=== PATIENT | male | born 1975 | race Caucasian/White ===

== ENCOUNTER 2017-11-30 11:33 | Emergency (ER) | payer MEDICAID, OTHER ==
[2017-11-30 12:01] LABS: ADD MAN DIFF? NO
[2017-11-30] MEDS: ONDANSETRON 4 MG INJ IV (12:01)
[2017-11-30] MEDS: KETOROLAC 30 MG INJ IV (12:01)
[2017-11-30] MEDS: SOD CHLORIDE 0.9% 1,000 ML IV (12:01)
[2017-11-30 12:11] LABS: BASOPHIL # 0.1 10^3/ul (0.0-0.1); BASOPHILS % 0.4 % (0.0-2.0); EOSINOPHILS # 0.2 10^3/ul (0.0-0.5); EOSINOPHILS % 1.6 % (0.0-7.0); HEMATOCRIT 44.2 % (42.0-52.0); HEMOGLOBIN 15.4 g/dl (14.0-18.0); LYMPHOCYTES % 35.2 % (15.0-51.0); MEAN CORPUSCULAR HEMOGLOBIN 29.6 pg (29.0-33.0); MEAN CORPUSCULAR HGB CONC 34.8 g/dl (32.0-37.0); MEAN PLATELET VOLUME 11.1 fl (7.4-10.4); MONOCYTE # 0.7 10^3/ul (0.3-0.9); NEUTROPHIL # 6.4 10^3/ul (1.6-7.5); NEUTROPHILS % 56.4 % (39.0-77.0); PLATELET COUNT 250 10^3/UL (140-415); RED CELL DISTRIBUTION WIDTH 12.9 % (11.5-14.5)
[2017-11-30 12:11] LABS: WHITE BLOOD COUNT 11.4 10^3/ul (4.8-10.8)
[2017-11-30 12:21] LABS: ANION GAP 13 (8-16); BLOOD UREA NITROGEN 7 mg/dl (7-20); CALCIUM 6.2 mg/dl (8.4-10.2); CARBON DIOXIDE 20 mmol/L (21-31); CHLORIDE 116 mmol/L (97-110); GLUCOSE 106 mg/dl (70-220); SODIUM 147 mmol/L (135-144)
[2017-11-30 12:35] LABS: POTASSIUM 2.4 mmol/L (3.5-5.1); TROPONIN-I < 0.012 ng/ml (0.000-0.120)
[2017-11-30] MEDS: POTASSIUM CHLORIDE (SR) 20 MEQ TAB PO (12:46)
[2017-11-30] MEDS: POTASSIUM CHLORIDE 100 ML IVPB (13:46)
== END 2017-11-30 16:50 | disposition home or self-care (01) ==
LOC: E/R 11:33
DX: E87.6 Hypokalemia (principal)
CPT/HCPCS: 36415; 71045; 80048; 84484; 85025; 96374; 96375; 99285-25

== ENCOUNTER 2018-01-24 02:29 | Emergency (ER) | payer OTHER, MEDICAID ==
[2018-01-24] MEDS: KETOROLAC 30 MG INJ IV (03:28)
[2018-01-24 03:29] LABS: ADD MAN DIFF? NO
[2018-01-24 03:31] LABS: WHITE BLOOD COUNT 13.7 10^3/ul (4.8-10.8)
[2018-01-24 03:31] LABS: BASOPHIL # 0.1 10^3/ul (0.0-0.1); BASOPHILS % 0.4 % (0.0-2.0); EOSINOPHILS # 0.2 10^3/ul (0.0-0.5); EOSINOPHILS % 1.5 % (0.0-7.0); HEMATOCRIT 44.3 % (42.0-52.0); HEMOGLOBIN 15.4 g/dl (14.0-18.0); LYMPHOCYTES # 4.6 10^3/ul (0.8-2.9); LYMPHOCYTES % 33.2 % (15.0-51.0); MEAN CORPUSCULAR HEMOGLOBIN 29.3 pg (29.0-33.0); MEAN CORPUSCULAR HGB CONC 34.8 g/dl (32.0-37.0); MEAN CORPUSCULAR VOLUME 84.4 fl (82.0-101.0); MEAN PLATELET VOLUME 10.7 fl (7.4-10.4); MONOCYTES % 6.9 % (0.0-11.0); NEUTROPHIL # 7.9 10^3/ul (1.6-7.5); NEUTROPHILS % 57.6 % (39.0-77.0); PLATELET COUNT 269 10^3/UL (140-415); RED BLOOD COUNT 5.25 10^6/ul (4.70-6.10); RED CELL DISTRIBUTION WIDTH 12.5 % (11.5-14.5)
[2018-01-24 03:47] LABS: ANION GAP 13 (8-16); BLOOD UREA NITROGEN 12 mg/dl (7-20); CALCIUM 9.3 mg/dl (8.4-10.2); CARBON DIOXIDE 29 mmol/L (21-31); CHLORIDE 108 mmol/L (97-110); CREATININE 0.85 mg/dl (0.61-1.24); GLUCOSE 106 mg/dl (70-220); MAGNESIUM 2.1 mg/dl (1.7-2.5); POTASSIUM 4.3 mmol/L (3.5-5.1); SODIUM 146 mmol/L (135-144)
[2018-01-24 03:59] LABS: TROPONIN-I < 0.010 ng/ml (0.000-0.120)
== END 2018-01-24 06:15 | disposition home or self-care (01) ==
LOC: E/R 02:29
DX: R07.89 Other chest pain (principal)
CPT/HCPCS: 71045; 80048; 83735; 84484; 85025; 93005; 96374; 99285-25

== ENCOUNTER 2018-02-27 13:20 | Emergency (ER) | payer SELFPAY, OTHER | END 2018-02-27 13:43 | disposition left against medical advice (07) | LOC: FTE 13:20 | DX: Z53.21 Procedure and treatment not carried out due to patient leaving prior to being seen by health care provider (principal) ==

== ENCOUNTER 2018-04-19 00:22 | Emergency (ER) | payer OTHER | END 2018-04-19 03:46 | disposition home or self-care (01) | LOC: FTE 00:22 | DX: R51 Headache (principal); R42 Dizziness and giddiness; I10 Essential (primary) hypertension | CPT/HCPCS: 70450; 82962; 93005; 99284-25 ==